=== PATIENT | male | born 1965 | race Caucasian/White ===

== ENCOUNTER → 2016-06-10 | Outpatient (CLI) | payer BC ==
--- NOTE | 2016-06-10 10:52 | XR ---
EXAMINATION TYPE: XR abdomen 1V DATE OF EXAM: 06/10/2016 10:37 AM HISTORY: Pain Comparison: None.Single KUB is submitted for interpretation. Findings: Right renal calculi: None Visualized. Right ureteral calculi: None Visualized. Left renal calculi: None Visualized. Left ureteral calculi: 3 mm calculus in the region of the right UVJ may reflect ureteral Calculus versus phlebolith. Pelvic calcifications: 2 calcifications within the right hemipelvis may reflect phlebolith formation versus a distal ureteral calculus. Bowel gas pattern is unremarkable. No free air. No mass effects. IMPRESSION: 1. Probable right hemipelvic phleboliths although one calcification does reside in the expected locat ion of the right UVJ and UVJ calculus is difficult to exclude.
== END ==
LOC: RADXRMAIN 10:13
PROVIDERS: ATTEND Urology
DX: N20.1 Calculus of ureter (principal)
CPT/HCPCS: 74000